=== PATIENT | female | born 1980 | race Two or more races ===

== ENCOUNTER → 2021-02-27 | Outpatient (REF) | LOC: M LABSMTC 12:08 | PROVIDERS: ATTEND Family Medicine | DX: Z11.52 Encounter for screening for COVID-19 (principal) ==

== ENCOUNTER → 2021-02-28 | Outpatient (REF) ==
[2021-02-28 10:46] LABS: RSV AMPLIFICATION NEGATIVE (NEGATIVE)
== END ==
LOC: M PLALAB 09:55 → M LAB 09:55
PROVIDERS: ATTEND Family Medicine
DX: Z11.52 Encounter for screening for COVID-19 (principal)

== ENCOUNTER 2021-03-16 07:20 | Outpatient (RCR) | END 2021-03-16 15:00 | disposition home or self-care (01) | LOC: M EMP 07:20 | PROVIDERS: ATTEND Pediatrics | DX: Z11.52 Encounter for screening for COVID-19 (principal) ==

== ENCOUNTER → 2021-04-13 | Outpatient (REF) ==
[2021-04-13 16:04] LABS: RSV AMPLIFICATION NEGATIVE (NEGATIVE)
== END ==
LOC: M LABSMTC 14:05
PROVIDERS: ATTEND Family Medicine
DX: Z20.822 Contact with and (suspected) exposure to COVID-19 (principal); Z11.52 Encounter for screening for COVID-19

== ENCOUNTER → 2021-05-15 | Outpatient (REF) | LOC: M LABSMTC 09:41 | PROVIDERS: ATTEND Family Medicine | DX: Z11.52 Encounter for screening for COVID-19 (principal) ==

== ENCOUNTER → 2022-01-05 | Outpatient (REF) | LOC: M LABSMTC 11:37 | PROVIDERS: ATTEND Family Medicine | DX: Z00.00 Encounter for general adult medical examination without abnormal findings (principal) ==

== ENCOUNTER → 2022-03-08 | Outpatient (REF) ==
[2022-03-08 10:20] LABS: RSV AMPLIFICATION POSITIVE (NEGATIVE)
== END ==
LOC: M EMP 08:49
PROVIDERS: ATTEND Family Medicine
DX: Z11.52 Encounter for screening for COVID-19 (principal)

== ENCOUNTER → 2022-03-26 | Outpatient (REF) ==
[2022-03-26 12:42] LABS: RSV AMPLIFICATION NEGATIVE (NEGATIVE)
== END ==
LOC: M EMP 08:09
PROVIDERS: ATTEND Family Medicine
DX: Z11.52 Encounter for screening for COVID-19 (principal)

== ENCOUNTER 2022-04-19 10:18 | Emergency (ER) | payer OTHER ==
[~2022-04-19] VITALS: Ht 167.6 cm; Wt 100.0 kg
[2022-04-19 10:46] VITALS: BP 130/90
[2022-04-19] MEDS ORDERED: VENTAER (10:48)
[2022-04-19] MEDS ORDERED: CITA10TA7 (10:48)
[2022-04-19] MEDS ORDERED: BUPR300T92 (10:48)
[2022-04-19 10:58] LABS: BASO % 0.3 % (0.0-1.0); EOS # 0.3 10^3/uL (0.0-0.5); EOS % 2.8 % (0.0-3.0); HEMATOCRIT 36.9 % (36.0-47.0); HEMOGLOBIN 12.3 g/dl (12.0-15.5); LYMPH # 2.2 10^3/uL (1.5-5.0); LYMPH % 23.8 % (24.0-44.0); MEAN CORPUSCULAR HEMOGLOBIN 29.5 pg (27.0-33.0); MEAN CORPUSCULAR HGB CONC 33.3 g/dl (32.0-36.5); MEAN CORPUSCULAR VOLUME 88.5 fl (80.0-96.0); MONO # 0.5 10^3/uL (0.0-0.8); MONO % 5.2 % (2.0-8.0); NEUTROPHILS # 6.3 10^3/uL (1.5-8.5); NEUTROPHILS % 67.5 % (36.0-66.0); PLATELET COUNT, AUTOMATED 520 10^3/uL (150-450); RED BLOOD COUNT 4.17 10^6/uL (4.00-5.40); WHITE BLOOD COUNT 9.4 10^3/uL (4.0-10.0)
[2022-04-19 11:19] LABS: ALBUMIN 3.6 G/DL (3.2-5.2); ALKALINE PHOSPHATASE 62 U/L (46-116); ALT/SGPT 22 U/L (7.0-40); AST/SGOT 16 U/L (<34); BILIRUBIN,TOTAL 0.2 MG/DL (0.3-1.2); BLOOD UREA NITROGEN 10 MG/DL (9-23); CALCIUM LEVEL 8.9 MG/DL (8.5-10.1); CARBON DIOXIDE LEVEL 21 MMOL/L (20-31); CHLORIDE LEVEL 105 MMOL/L (98-107); GLOMERULAR FILTRATION RATE > 60.0 (>58); GLUCOSE, FASTING 94 MG/DL (60-100); POTASSIUM SERUM 4.1 MMOL/L (3.5-5.1); SODIUM LEVEL 138 MMOL/L (136-145); TOTAL PROTEIN 6.9 G/DL (5.7-8.2)
[2022-04-19 11:33] LABS: HEPATITIS B SURFACE ANTIGEN NEGATIVE (NEGATIVE)
[2022-04-19 11:47] LABS: HIV SCREEN CENTAUR EXPOSED NEGATIVE (NEGATIVE)
[2022-04-19 11:54] LABS: HEPATITIS C VIRUS ABY INDEX 0.1 INDEX (<0.8)
[2022-04-19 12:01] LABS: HCG, SERUM QUALITATIVE NEGATIVE (NEGATIVE)
[2022-04-19 12:16] LABS: HEPATITIS B SURFACE ANTIBODY NEGATIVE (POSITIVE)
== END 2022-04-19 12:54 | disposition home or self-care (01) ==
LOC: M ED 10:18
DX: Z77.21 Contact with and (suspected) exposure to potentially hazardous body fluids (principal)

== ENCOUNTER → 2022-05-09 | Outpatient (REF) ==
[~2022-05-09] MED LIST: BUPR300T92; CITA10TA7; VENTAER
== END ==
LOC: M LABSMTC 10:22
PROVIDERS: ATTEND Family Medicine
DX: Z11.52 Encounter for screening for COVID-19 (principal)

== ENCOUNTER → 2022-06-10 | Outpatient (REF) | payer BC ==
[2022-06-10 22:03] LABS: APPEARANCE, URINE CLOUDY (CLEAR); BACTERIA, URINE AUTO 2+ (NEGATIVE); BILIRUBIN, URINE AUTO NEGATIVE (NEGATIVE); BLOOD, URINE BLOOD 2+ (NEGATIVE); COLOR, URINE YELLOW (YELLOW); GLUCOSE, URINE (UA) AUTO NEGATIVE (NEGATIVE); KETONE, URINE AUTO 1+ mg/dL (NEGATIVE); LEUKOCYTE ESTERASE, URINE AUTO 3+ (NEGATIVE); MUCUS, URINE SMALL (NEGATIVE); NITRITE, URINE AUTO NEGATIVE (NEGATIVE); PROTEIN, URINE AUTO 2+ mg/dL (NEGATIVE); RBC, URINE AUTO 18 /HPF (0-3); SPECIFIC GRAVITY URINE AUTO 1.019 (1.002-1.035); SQUAMOUS EPITHELIAL CELL UR AU 1 /HPF (0-6); UROBILINOGEN, URINE AUTO 0.2 mg/dL (0.0-2.0); WBC, URINE AUTO TNTC /HPF (0-3)
== END ==
LOC: M LAB REF 21:11
PROVIDERS: ATTEND Physician Assistant
DX: N39.0 Urinary tract infection, site not specified (principal)

== ENCOUNTER → 2022-07-26 | Outpatient (REF) | LOC: M EMP 10:43 | PROVIDERS: ATTEND Family Medicine | DX: Z53.9 Procedure and treatment not carried out, unspecified reason (principal) ==

== ENCOUNTER → 2022-07-26 | Outpatient (REF) | LOC: M EMP 10:46 | PROVIDERS: ATTEND Family Medicine | DX: Z11.52 Encounter for screening for COVID-19 (principal) ==

== ENCOUNTER → 2022-08-31 | Outpatient (REF) | LOC: M EMP 08:16 | PROVIDERS: ATTEND Family Medicine | DX: Z11.52 Encounter for screening for COVID-19 (principal) ==

== ENCOUNTER → 2022-09-02 | Outpatient (REF) | LOC: M EMP 08:52 | PROVIDERS: ATTEND Family Medicine | DX: Z11.52 Encounter for screening for COVID-19 (principal) ==

== ENCOUNTER → 2022-10-28 | Outpatient (REF) | payer BC ==
[2022-10-28 21:09] LABS: APPEARANCE, URINE CLEAR (CLEAR); BACTERIA, URINE AUTO NEGATIVE (NEGATIVE); BILIRUBIN, URINE AUTO NEGATIVE (NEGATIVE); BLOOD, URINE BLOOD 1+ (NEGATIVE); COLOR, URINE YELLOW (YELLOW); GLUCOSE, URINE (UA) AUTO NEGATIVE (NEGATIVE); KETONE, URINE AUTO TRACE mg/dL (NEGATIVE); LEUKOCYTE ESTERASE, URINE AUTO NEGATIVE (NEGATIVE); MUCUS, URINE SMALL (NEGATIVE); NITRITE, URINE AUTO NEGATIVE (NEGATIVE); PROTEIN, URINE AUTO NEGATIVE (NEGATIVE); RBC, URINE AUTO 2 /HPF (0-3); SPECIFIC GRAVITY URINE AUTO 1.018 (1.002-1.035); SQUAMOUS EPITHELIAL CELL UR AU 0 /HPF (0-6); UROBILINOGEN, URINE AUTO 0.2 mg/dL (0.0-2.0); WBC, URINE AUTO 8 /HPF (0-3)
== END ==
LOC: M LAB REF 20:55
PROVIDERS: ATTEND Physician Assistant
DX: N39.0 Urinary tract infection, site not specified (principal)

== ENCOUNTER → 2023-07-19 | Outpatient (REF) | payer BC | LOC: M LAB REF 21:19 | PROVIDERS: ATTEND Physician Assistant | DX: J03.90 Acute tonsillitis, unspecified (principal) ==

== ENCOUNTER → 2023-07-19 | Outpatient (REF) | LOC: M EMP 07:53 | PROVIDERS: ATTEND Family Medicine | DX: Z11.52 Encounter for screening for COVID-19 (principal) ==

== ENCOUNTER → 2023-07-26 | Outpatient (REF) | payer BC ==
[2023-07-26 17:39] LABS: APPEARANCE, URINE CLOUDY (CLEAR); BACTERIA, URINE AUTO 1+ (NEGATIVE); BILIRUBIN, URINE AUTO NEGATIVE (NEGATIVE); BLOOD, URINE BLOOD 2+ (NEGATIVE); COLOR, URINE AMBER (YELLOW); GLUCOSE, URINE (UA) AUTO NEGATIVE (NEGATIVE); KETONE, URINE AUTO NEGATIVE (NEGATIVE); LEUKOCYTE ESTERASE, URINE AUTO 2+ (NEGATIVE); NITRITE, URINE AUTO POSITIVE (NEGATIVE); PROTEIN, URINE AUTO 2+ mg/dL (NEGATIVE); RBC, URINE AUTO 21 /HPF (0-3); SPECIFIC GRAVITY URINE AUTO 1.026 (1.002-1.035); SQUAMOUS EPITHELIAL CELL UR AU 1 /HPF (0-6); UROBILINOGEN, URINE AUTO 0.2 mg/dL (0.0-2.0); WBC, URINE AUTO 142 /HPF (0-3)
== END ==
LOC: M LAB REF 16:37
PROVIDERS: ATTEND Physician Assistant Medical
DX: N39.0 Urinary tract infection, site not specified (principal)

== ENCOUNTER → 2023-09-15 | Outpatient (REF) ==
[~2023-09-15] MED LIST changes: +BUPR-597; -BUPR300T92
== END ==
LOC: M EMP 12:26
PROVIDERS: ATTEND Family Medicine
DX: Z11.52 Encounter for screening for COVID-19 (principal)

== ENCOUNTER → 2023-12-12 | Outpatient (REF) | LOC: M EMP 10:30 | PROVIDERS: ATTEND Family Medicine | DX: Z11.52 Encounter for screening for COVID-19 (principal) ==

== ENCOUNTER → 2024-04-02 | Outpatient (REF) ==
[~2024-04-02] MED LIST changes: +BACT800T5 PO; +FLUC150T9 PO
== END ==
LOC: M EMP 11:18
PROVIDERS: ATTEND Family Medicine
DX: Z11.52 Encounter for screening for COVID-19 (principal)

== ENCOUNTER → 2024-07-16 | Outpatient (REF) | LOC: M EMP 11:19 | PROVIDERS: ATTEND Family Medicine | DX: Z11.52 Encounter for screening for COVID-19 (principal) ==

== ENCOUNTER → 2024-11-03 | Outpatient (REF) | payer BC ==
[~2024-11-03] MED LIST changes: -BUPR-597; +BUPR-766
[2024-11-03 11:32] LABS: BASO # 0.0 10^3/uL (0.0-0.2); BASO % 0.2 % (0.0-1.0); EOS # 0.2 10^3/uL (0.0-0.5); EOS % 2.2 % (0.0-3.0); LYMPH # 2.2 10^3/uL (1.5-5.0); LYMPH % 25.0 % (24.0-44.0); MONO # 0.5 10^3/uL (0.0-0.8); MONO % 6.2 % (2.0-8.0); NEUTROPHILS # 5.7 10^3/uL (1.5-8.5); NEUTROPHILS % 66.1 % (36.0-66.0); PLATELET COUNT, AUTOMATED 381 10^3/uL (150-450)
[2024-11-03 12:04] LABS: ALT/SGPT 23 U/L (7.0-40); AST/SGOT 18 U/L (<34); CALCIUM LEVEL 9.8 MG/DL (8.5-10.1); CARBON DIOXIDE LEVEL 22 MMOL/L (20-31); CHLORIDE LEVEL 106 MMOL/L (98-107); CHOLESTEROL LEVEL 227 MG/DL (<200); CHOLESTEROL RISK RATIO 3.76 (<5); CREATININE FOR GFR 0.64 MG/DL (0.55-1.30); GLOMERULAR FILTRATION RATE > 90.0 (>58); LDL CHOLESTEROL 153.9 MG/DL (<100); NON-HDL-C 166.7 MG/DL; POTASSIUM SERUM 4.1 MMOL/L (3.5-5.1); SODIUM LEVEL 140 MMOL/L (136-145); TRIGLYCERIDES LEVEL 64 MG/DL (<150)
[2024-11-03 12:05] LABS: FREE T4 1.30 NG/DL (0.89-1.76)
[2024-11-03 12:06] LABS: TOTAL 25(OH) VITAMIN D 67.2 NG/ML (20.0-100.0)
[2024-11-03 12:36] LABS: HIV 1&2 SCREEN NEGATIVE (NEGATIVE)
[2024-11-03 12:44] LABS: HEPATITIS C VIRUS ABY INDEX < 0.02 INDEX (<0.8)
== END ==
LOC: M LAB REF 11:13
PROVIDERS: ATTEND Physician Assistant
DX: Z00.00 Encounter for general adult medical examination without abnormal findings (principal); E78.2 Mixed hyperlipidemia; R53.83 Other fatigue; Z11.4 Encounter for screening for human immunodeficiency virus [HIV]; Z11.59 Encounter for screening for other viral diseases; E55.9 Vitamin D deficiency, unspecified

== ENCOUNTER 2024-11-13 12:45 | Outpatient (RCR) | payer BC | END 2024-11-15 | LOC: M PT 12:45 | PROVIDERS: ATTEND Physician Assistant | DX: M54.50 Low back pain, unspecified (principal) ==

== ENCOUNTER 2024-11-27 12:45 | Outpatient (RCR) | payer BC | END 2024-12-16 | LOC: M PT 12:45 | PROVIDERS: ATTEND Physician Assistant | DX: M54.50 Low back pain, unspecified (principal) ==